=== PATIENT | male | born 1960 ===

== ENCOUNTER 2021-11-13 07:06 | Emergency (ER) | payer OTHER ==
[~2021-11-13] VITALS: Ht 167.6 cm; Wt 77.1 kg
[~2021-11-13 07:06] MED LIST: INTESTINEX1 CA1 PO; LEVSIN/SL0.125 MG PO; PRILOSEC20 MG PO; TRAM1TAB98 PO
== END 2021-11-13 11:36 | disposition home or self-care (01) ==
LOC: ER 07:06
DX: K64.1 Second degree hemorrhoids (principal); K64.4 Residual hemorrhoidal skin tags; I10 Essential (primary) hypertension